=== PATIENT | male | born 2000 | race Caucasian/White ===

== ENCOUNTER 2022-01-13 22:07 | Emergency (ER) | payer MEDICAID ==
[~2022-01-13] VITALS: Ht 170.2 cm; Wt 61.7 kg
[2022-01-13 22:20] VITALS: BP 132/87
--- NOTE | 2022-01-13 22:26 | NUR ---
PT AMBULATED TO ER BED 5
--- NOTE | 2022-01-13 22:26 | NUR ---
PT TO BED 5
--- NOTE | 2022-01-13 22:43 | NUR ---
Fe ojeda in ED - 01/13/22 at 2246 by [email or web address] SPOKE WITH PATIENT AT BEDSIDE, WHO REPORTS NUMBNESS AND TINGLING IN LEFT FOREFINGER AND THUMB WHEN BROUGHT TOGETHER.
--- NOTE | 2022-01-13 22:43 | NUR ---
SPOKE WITH PATIENT AT BEDSIDE, WHO REPORTS NUMBNESS AND TINGLING IN LEFT FOREFINGER AND THUMB WHEN BROUGHT TOGETHER x1 HOUR. PATIENT CURRENTLY DENIES PAIN, AND/OR PREVIOUS INJURY. PATIENT DENIES ANY PREVIOUS MEDICAL HISTORY
[2022-01-13 23:54] VITALS: BP 132/87
--- NOTE | 2022-01-13 23:54 | NUR ---
Patient discharged with v/s stable. Written and verbal after care instructions given and explained. Patient verbalized understanding. Ambulatory with steady gait. All questions addressed prior to discharge. Advised to follow up with PMD. Addendum: 01/13/22 at 2359 by [email or web address] DX: *MUSCLE CRAMPS AND SPASMS
== END 2022-01-13 23:54 | disposition home or self-care (01) ==
LOC: MED 22:07
DX: R25.2 Cramp and spasm (principal)
CPT/HCPCS: 99281